=== PATIENT | male | born 1945 | race Caucasian/White ===

== ENCOUNTER → 2016-11-11 | Outpatient (CLI) | payer OTHER ==
--- NOTE | 2016-11-11 14:40 | DX ---
3 Views Left Foot: Reason for examination: Lateral foot pain and swelling in a 71-year-old male; no report of recent spe cific trauma. Findings: A fracture or other acute osseous abnormality is not identified. The bone alignment is norm al. There is a minimal plantar calcaneal spur. A radiopaque foreign body is not identified. Impression: Negative for fracture.
== END ==
LOC: BMCIMAGING 13:40
PROVIDERS: ATTEND Emergency Medicine
DX: M79.672 Pain in left foot (principal); M77.32 Calcaneal spur, left foot

== ENCOUNTER 2017-09-06 05:57 | Day surgery (SDC) | payer OTHER ==
--- NOTE | 2017-09-05 15:45 | GHP ---
[f rep st] PREOP HISTORY AND PHYSICAL DATE OF ADMISSION: 09/06/2017 ADMISSION DIAGNOSIS: Benign prostatic hypertrophy with urinary retention. HISTORY OF PRESENT ILLNESS: A 72-year-old gentleman who has had BPH with urinary obstruction. CAT s can revealed that he had BPH, diverticulosis of the colon, esophageal hernia, and atherosclerotic vas cular disease. He had an AUA score that revealed a total score of 12, with a quality of life score o f 3; and he had a PSA of 1.8 and a postvoid residual varying with the most recent being 60 mL. Had a prostate ultrasound that showed prostate size being 53.6 g with an intravesical lobe obstructing him . PSA density was 0.03. He had a urodynamics test assessing his lower urinary tract that showed he had obstruction. He had a bladder volume that was over 700 mL,, maximum flow was 5 mL/second, maximu m detrusor pressure 62 cm of water pressure, average flow was 2.8 mL/sec, postvoid residual at the ti me of urodynamics was 588 mL. He had a cystoscopy that revealed significant BPH with intravesical lo be of the prostate. At the present time, he is admitted for a GreenLight laser photo vaporization wi th possible TURP. ADMISSION MEDICATIONS: Aspirin and tamsulosin. ALLERGIES: None. FAMILY HISTORY: Positive for heart disease. He is a moderate alcohol consumer. . Nonsmoker . His immunizations are up to date with influenza and PCV. REVIEW OF SYSTEMS: Negative cardiac, respiratory, GI, and endocrine. PHYSICAL EXAMINATION: VITAL SIGNS: Stable. CHEST: Clear. HEART: Regular rate and rhythm. ABDOMEN: Normal. No organomegaly, rebound, or guarding. LOWER EXTREMITIES: Normal. : prostate is benign and hypertrophied. At the present time, he is admitted for GreenLight photo vaporization and possible TURP. /[id number]/MODL
[2017-09-06] MEDS ORDERED: LR 1,000 ML IV ONE (06:29)
[2017-09-06] MEDS ORDERED: LIDOCAINE 1% 2 ML INJ ID PRN (06:29)
[2017-09-06] MEDS ORDERED: ceFAZolin 2 GM/SWFI 2 GM/20 ML SYR IVP ONE (06:59)
--- NOTE | 2017-09-06 06:59 | PDHPUP ---
History & Physical Update H&P update statement: This history and physical update is based on an assessment of the patient which was completed after admission or registration (within 24 hours), but prior to the surgery/procedure. H&P update: H&P reviewed & patient examined, no change in patient's condition since H&P completed
[2017-09-06] MEDS ORDERED: LIDOCAINE 2% JELLY 20 ML (UROJECT) ONE (07:00)
[2017-09-06] MEDS ORDERED: MIDAZOLAM 2 MG/2 ML VIAL IVP ONE (07:03)
--- NOTE | 2017-09-06 07:05 | PDANEPAE ---
ANE History of Present Illness 72 yo with BPH ANE Past Medical History - Cardiovascular History Hx Hypertension: No Hx Arrhythmias: No Hx Chest Pain: No Hx Coronary Artery / Peripheral Vascular Disease: No Hx CHF / Valvular Disease: No Hx Palpitations: No - Pulmonary History Hx COPD: No Hx Asthma/Reactive Airway Disease: No Hx Recent Upper Respiratory Infection: No Hx Oxygen in Use at Home: No Hx Sleep Apnea: No Sleep Apnea Screening Result - Last Documented: Negative - Neurologic History Hx Cerebrovascular Accident: No Hx Seizures: No Hx Dementia: No - Endocrine History Hx Diabetes: No - Renal History Hx Renal Disorders: No - Liver History Hx Hepatic Disorders: No - Neurological & Psychiatric Hx Hx Neurological and Psychiatric Disorders: No - Cancer History Hx Cancer: Yes Cancer History Comment: SKIN CA 10YRS AGO - Congenital Disorder History Hx Congenital Disorders: No - GI History Hx Gastrointestinal Disorders: Yes Gastrointestinal History Comment: GERD - Other Health History Other Health History: NONE - Chronic Pain History Chronic Pain: Yes (SHOULDER, BACK, KNEE) - Surgical History Prior Surgeries: KNEE SCOPE ANE Review of Systems Review of systems is: negative Review of Systems: - Exercise capacity METS (RN): 4 METS ANE Patient History - Allergies Allergies/Adverse Reactions: No Known Allergies Allergy (Unverified 09/05/17 17:26) - Home Medications Home medications: home medication list seen and reviewed - NPO status NPO Since - Liquids (Date): 09/05/17 NPO Since - Liquids (Time): 19:00 NPO Since - Solids (Date): 09/05/17 NPO Since - Solids (Time): 19:00 - Anes Hx Anes Hx: no prior problems - Smoking Hx Smoking Status: Never smoked - Alcohol Use Alcohol Use: Occasionally - Family Anes Hx Family Hx Anesthesia Complications: NONE ANE Labs/Vital Signs - Vital Signs Blood Pressure: 113/71 Heart Rate: 50 Respiratory Rate: 20 O2 Sat (%): 96 Height: 172.72 cm Weight: 86.183 kg ANE Physical Exam - Airway Neck exam: FROM Mallampati Score: Class 1 - Pulmonary Pulmonary: no respiratory distress - Cardiovascular Cardiovascular: regular rate and rhythym - ASA Status ASA Status: II ANE Anesthesia Plan Anesthesia Plan: GA w LMA
[2017-09-06] MEDS ORDERED: fentaNYL 100 MCG/2 ML INJ ONE (07:22)
[2017-09-06] MEDS ORDERED: PROPOFOL 200 MG/20 ML VIAL ONE (07:22)
[2017-09-06] MEDS ORDERED: LIDOCAINE 2% JELLY 5 ML TUBE ONE (07:29)
[2017-09-06] MEDS ORDERED: fentaNYL 100 MCG/2 ML INJ IVP PRN (08:47)
[2017-09-06] MEDS ORDERED: ONDANSETRON 4 MG/2 ML VIAL IVP PRN (08:47)
[2017-09-06] MEDS ORDERED: NALOXONE HCL 0.4 MG/ML INJ IVP PRN (08:47)
[2017-09-06] MEDS ORDERED: PROMETHAZINE HCL 25 MG/ML INJ IVP PRN (08:47)
[2017-09-06] MEDS ORDERED: DEXAMETHASONE 4 MG/ML VIAL IVP PRN (08:47)
--- NOTE | 2017-09-06 08:47 | POSTANESTH ---
Post Anesthetic Evaluation Cardiovascular Status: Normal, Stable Respiratory Status: Normal, Stable Level of Consciousness/Mental Status: Can Participate in Eval Pain Control: Adequate, Prn Tx Ordered Nausea/Vomiting Control: Adequate, Prn Tx Ordered Complications Possibly Related to Anesthesia: None Noted
[2017-09-06 08:55] VITALS: PULSE 50
--- NOTE | 2017-09-06 09:10 | POSTOPPROG ---
Post Op Note Date of Operation: 09/06/17 Surgeon: Larry Vance Anesthesia: LMA Pre-op Diagnosis: bph Inf/Abcess present in the surg proc area at time of surgery?: No EBL: Minimal Drains: Other (bustos)
--- NOTE | 2017-09-06 09:30 | GOP ---
[f rep st] OPERATIVE REPORT DATE OF OPERATION: SURGEON: Larry Vance MD PREOPERATIVE DIAGNOSIS: Benign prostatic hypertrophy with urinary obstruction and retention. POSTOPERATIVE DIAGNOSIS: Benign prostatic hypertrophy with urinary obstruction and retention. PROCEDURE PERFORMED: GreenLight photovaporization of the prostate. FINDINGS: SPECIMENS: None. DESCRIPTION OF PROCEDURE: This gentleman underwent general anesthesia, and was prepped and draped in normal sterile fashion in dorsal lithotomy position. After appropriate time-out, the scope was pass ed under direct vision. He had an intravesical lobe of the prostate and lateral lobar hypertrophy an d +3 trabeculation of the bladder. With the XPS fiber, starting settings at 80, I did laser ostomies at the 10 and 2 o'clock positions and then at the 4 and 8 o'clock positions the intravesical lobe wa s vaporized through its entirety and at that point, the left lateral lobe and left portion of the pos terior lobe were vaporized. The right lateral lobe and right portion of the posterior lobe were vapo rized. I used 120 thrasher on the lateral lobes and the intravesical lobe. [place] and bladder neck prima rily did 80 thrasher and then at that point, I visualized the bladder had no problems anatomically. Ure teral orifices were preserved. External sphincter and verumontanum were preserved and bladder was fi lled. Removal of the scope. He had a good flow with coude maneuver. Uro-Jet placed in the urethra and a 20-Frisian Brown catheter placed. A total of [id number] joules were used, and the laser time was 2 3 minutes. COMPLICATIONS: None. DISPOSITION: He will be discharged home to have his catheter pulled tomorrow and then see me in [facility] in 3 weeks. I will discuss the issues with his . /[id number]/MODL
[2017-09-06 09:45] VITALS: TEMP 97.3
[2017-09-06 10:02] VITALS: BP 105/64; RESP 16; O2SAT 99
== END 2017-09-06 10:04 | disposition home or self-care (01) ==
LOC: FSGY 05:57
PROVIDERS: ATTEND Specialist
PROC: 0V508ZZ Destruction of Prostate, Via Natural or Artificial Opening Endoscopic (ICD-10-PCS; principal; 2017-09-06 07:15)
DX: N40.1 Benign prostatic hyperplasia with lower urinary tract symptoms (principal); I51.9 Heart disease, unspecified; K21.9 Gastro-esophageal reflux disease without esophagitis
CPT/HCPCS: J0690; J2250; J2704; J3010